=== PATIENT | female | born 1965 | race Two or more races ===

== ENCOUNTER → 2025-05-14 | Outpatient (CLI) | payer BC, SELFPAY ==
--- NOTE | 2025-05-14 13:45 | XR_ITS ---
Examination: Foot, right, 3 views Technique: AP, oblique, lateral views foot, 3 views Date and time of exam: May 14, 2025 1329 hours INDICATIONS: Right foot pain beginning one month ago FINDINGS: Moderate osteopenia Mild narrowing first metatarsophalangeal joint 4 mm plantar bony calcaneal spur. No fracture IMPRESSION: 4 mm plantar bony calcaneal spur
== END | disposition home or self-care (01) ==
PROVIDERS: PCP Registered Nurse; Referring Provider Registered Nurse; Visit Provider Registered Nurse
DX: M77.31 Calcaneal spur, right foot (principal)
CPT/HCPCS: 73630